=== PATIENT | female | born 1945 | race Caucasian/White ===

== ENCOUNTER 2022-01-10 06:14 | Inpatient (IN) | payer MEDICARE ==
[2022-01-07 10:10] LABS: Basophils # (auto) 0.2 10 ^3/uL (0-0.2); Basophils % (auto) 3.7 % (0.0-2.0); Eosinophils # (auto) 0.2 10 ^3/uL (0-0.8); Eosinophils % (auto) 3.6 % (0.0-7.0); Hematocrit 40.2 % (36.0-46.0); Hemoglobin 13.4 g/dL (12.2-16.2); Lymphocytes # (auto) 1.2 10 ^3/uL (0.4-5.4); Lymphocytes % (auto) 24.2 % (10.0-50.0); Mean Corpuscular Hemoglobin 29.9 pg (28.0-32.0); Mean Corpuscular Hgb Conc. 33.4 g/dL (32.0-36.0); Mean Corpuscular Volume 89.4 fL (80.0-100.0); Monocytes # (auto) 0.4 10 ^3/uL (0-1.3); Monocytes % (auto) 8.4 % (0.0-12.0); Neutrophils # (auto) 2.9 10 ^3/uL (1.6-8.6); Neutrophils % (auto) 60.1 % (37.0-80.0); Red Blood Cells 4.49 10^6/uL (4.0-5.20); Red Cell Distribution Width 15.1 % (11.8-14.3); White Blood Cell 4.8 10^3/uL (4.4-10.8)
[2022-01-07 10:24] LABS: INR 1.01 (0.9-1.15); Partial Thromboplastin Time 26.6 sec (23.6-33.0)
[2022-01-07 10:26] LABS: Albumin 3.7 g/dL (3.4-5.0); Calcium 8.9 mg/dL (8.5-10.1); Potassium 4.1 mmol/L (3.5-5.1)
[2022-01-07 10:31] LABS: BUN/Creatinine Ratio 21.1; Bilirubin, Total 0.9 mg/dL (0.2-1.0)
[~2022-01-10] VITALS: Ht 154.9 cm; Wt 78.3 kg
[~2022-01-10 06:14] MED LIST: ABAT1INJ2 SC; ALBU108A5 IN; ASCOCRY2 OR; ASPI1TAB20 PO; B-CO-15 OR; CHOLTAB12 PO; CYAN50008 PO; FAMO-68 PO; FOLITAB22 OR; LOSA-69 PO; MISCCAP OR; MONT5CHW23 PO; MULT-833 OR; OMEG10003 PO; TRAM50TA2 PO; TRAZ100T3 PO; VITA180C PO; ZINC50TA7 PO
[2022-01-10] MEDS ORDERED: SUCCINYLCHOLINE CHLORIDE 20 MG/ML 10ML VIAL IV ONE (06:35)
[2022-01-10] MEDS ORDERED: TETRACAINE 1% INJ 2 ML VIAL IJ ONE (06:35)
[2022-01-10] MEDS ORDERED: TRANEXAMIC ACID 20 ML ONE (07:02)
[2022-01-10] MEDS ORDERED: ceFAZolin 1GM/50ML 100 ML IV ONE (07:03)
[2022-01-10] MEDS ORDERED: DexAMETHasone SOD PHOS 10MG/1ML VIAL INJ ONE (07:04)
[2022-01-10] MEDS ORDERED: ACETAMINOPHEN IV 100 ML IV ONE (07:04)
[2022-01-10] MEDS ORDERED: MIDAZOLAM HCL 2MG/2ML 2ml VIAL (1mg/ml) ONE (07:04)
[2022-01-10] MEDS ORDERED: fentaNYL CITRATE 100 MCG/2 ML VL ONE (07:04)
[2022-01-10] MEDS ORDERED: MORPHINE SULF PF 5 MG/10 ML VIAL ONE ×2 (07:04→07:56)
[2022-01-10] MEDS ORDERED: SODIUM CHLORIDE LOCK 10 ML ONE (07:04)
[2022-01-10] MEDS ORDERED: ONDANSETRON HCL 4 MG/2 ML VIAL ONE (07:04)
[2022-01-10] MEDS ORDERED: PROPOFOL 10 MG/ML 20 ML IV ONE (07:04)
[2022-01-10] MEDS: PREGABALIN CAPSULE 75 MG CAP ONE ×2 (07:10→10:14)
[2022-01-10] MEDS: CELECOXIB 100 MG CAP ONE ×2 (07:10→10:14)
[2022-01-10] MEDS ORDERED: KETOROLAC TROMETH 30 MG/ML 1ML VIAL ONE (07:14)
[2022-01-10] MEDS ORDERED: ACETAMINOPHEN 325 MG TAB PO PRN (08:00)
[2022-01-10] MEDS ORDERED: HYDROmorphone HCL 2 MG/ML VL/or syr IV PRN ×2 (08:00→08:30)
[2022-01-10] MEDS ORDERED: BISACODYL 5 MG EC TAB PO PRN (08:00)
[2022-01-10] MEDS ORDERED: ONDANSETRON HCL 4 MG/2 ML VIAL IV PRN ×2 (08:00→08:30)
[2022-01-10] MEDS ORDERED: NITROGLYCERIN 0.4 MG SL TAB SL PRN (08:00)
[2022-01-10] MEDS ORDERED: MORPHINE SULFATE INJ 2 MG/ml SYRG IV PRN (08:00)
[2022-01-10 08:11] LABS: Urine Bacteria MOD /hpf (None Seen); Urine Blood Negative /uL (Negative); Urine WBC 27 /hpf (0 - 5)
[2022-01-10] MEDS ORDERED: CELECOXIB 100 MG CAP PO ONE (08:15)
[2022-01-10] MEDS ORDERED: PREGABALIN CAPSULE 75 MG CAP PO ONE (08:15)
[2022-01-10] MEDS ORDERED: ACETAMINOPHEN IV 1000 MG/100ML (10MG/ML) IV ONE (08:15)
[2022-01-10] MEDS ORDERED: MORPHINE SULFATE 4 MG/ML SYR/VIAL IV PRN (08:30)
[2022-01-10] MEDS ORDERED: diphenhdrAMINE HCL 50 MG/1 ML VL IV PRN (08:30)
[2022-01-10] MEDS ORDERED: NALOXONE HCL 0.4 MG/ML VIAL IV PRN (08:30)
[2022-01-10] MEDS: BUPIVACAINE 0.25% INJ 50ML VIAL ONE ×2 (08:40→10:13)
[2022-01-10] MEDS: VANCOMYCIN HCL 1000 MG VL ONE ×2 (08:40→10:15)
[2022-01-10] MEDS: DOCUSATE SOD 100 MG CAP PO SCH ×2 (10:00→21:39)
[2022-01-10] MEDS ORDERED: ALBUTEROL SULF HFA 90MCG INH 200DOSE IN SCH (10:00)
[2022-01-10] MEDS: ENOXAPARIN SOD 40 MG/0.4 ML SYRINGE SC SCH (10:00)
[2022-01-10] MEDS: LACTATED RINGER'S 1,000 ML IV SCH ×2 (10:15→18:26)
[2022-01-10] MEDS: ceFAZolin 1GM/50ML 50 ML IV SCH ×3 (10:16→21:37)
[2022-01-10] MEDS: LOSARTAN POTASSIUM 50 MG TAB PO SCH (11:03)
[2022-01-10] MEDS: FAMOTIDINE 20 MG TAB PO SCH (11:03)
[2022-01-10] MEDS: MONTELUKAST SODIUM 10 MG TAB PO SCH (11:04)
[2022-01-10] MEDS: traMADol HCL 50 MG TAB PO SCH (11:04)
[2022-01-10] MEDS: SODIUM CHLOR 0.9% PF (SALINE LOCK) 10ML VIAL/SYR IV SCH ×2 (14:00→21:38)
[2022-01-10 15:01] VITALS: BP 105/64
[2022-01-10] MEDS: traZODone HCL 50 MG TAB PO SCH (18:33)
[2022-01-10 22:00] VITALS: BP 110/50
[2022-01-11] MEDS: HYDROcodone-ACET 5/325MG TAB PO PRN ×3 (01:29→21:20)
[2022-01-11] MEDS: LACTATED RINGER'S 1,000 ML IV SCH ×3 (03:52→23:59)
[2022-01-11 04:37] LABS: Hematocrit 31.8 % (36.0-46.0); Hemoglobin 10.5 g/dL (12.2-16.2)
[2022-01-11 05:00] VITALS: BP 96/47
[2022-01-11 05:16] LABS: Potassium 4.8 mmol/L (3.5-5.1)
[2022-01-11 05:17] LABS: Albumin 3.2 g/dL (3.4-5.0); Calcium 8.6 mg/dL (8.5-10.1)
[2022-01-11 05:21] LABS: BUN/Creatinine Ratio 25.7; Bilirubin, Total 0.6 mg/dL (0.2-1.0); Total Protein 6.1 g/dL (6.4-8.2)
[2022-01-11] MEDS: SODIUM CHLOR 0.9% PF (SALINE LOCK) 10ML VIAL/SYR IV SCH ×3 (06:36→21:48)
[2022-01-11] MEDS: MONTELUKAST SODIUM 10 MG TAB PO SCH (09:39)
[2022-01-11] MEDS: traMADol HCL 50 MG TAB PO SCH (09:39)
[2022-01-11] MEDS: DOCUSATE SOD 100 MG CAP PO SCH ×2 (09:39→21:48)
[2022-01-11] MEDS: FAMOTIDINE 20 MG TAB PO SCH (09:41)
[2022-01-11] MEDS: ENOXAPARIN SOD 40 MG/0.4 ML SYRINGE SC SCH (09:41)
[2022-01-11 09:51] VITALS: BP 105/56
[2022-01-11] MEDS: LOSARTAN POTASSIUM 50 MG TAB PO SCH (09:51)
[2022-01-11] MEDS ORDERED: HYDROmorphone HCL 2 MG/ML VL/or syr IV PRN (11:15)
[2022-01-11] MEDS ORDERED: cefTRIAXone 1GM/50ML D5W 50 ML IV ONE (11:15)
[2022-01-11] MEDS ORDERED: MONTELUKAST SODIUM 10 MG TAB PO ONE (11:15)
[2022-01-11 13:00] VITALS: BP 105/51
[2022-01-11 17:00] VITALS: BP 128/55
[2022-01-11] MEDS: traZODone HCL 50 MG TAB PO SCH (17:18)
[2022-01-11 22:00] VITALS: BP 150/60
[2022-01-12] MEDS: HYDROcodone-ACET 5/325MG TAB PO PRN ×3 (03:16→13:18)
[2022-01-12 05:00] VITALS: BP 136/70
[2022-01-12 05:39] LABS: Basophils # (auto) 0 10 ^3/uL (0-0.2); Basophils % (auto) 0.3 % (0.0-2.0); Eosinophils # (auto) 0 10 ^3/uL (0-0.8); Eosinophils % (auto) 0.2 % (0.0-7.0); Hematocrit 30.1 % (36.0-46.0); Hemoglobin 10.1 g/dL (12.2-16.2); Lymphocytes # (auto) 0.9 10 ^3/uL (0.4-5.4); Lymphocytes % (auto) 9.5 % (10.0-50.0); Mean Corpuscular Hemoglobin 29.6 pg (28.0-32.0); Mean Corpuscular Hgb Conc. 33.6 g/dL (32.0-36.0); Mean Corpuscular Volume 88.2 fL (80.0-100.0); Monocytes # (auto) 0.7 10 ^3/uL (0-1.3); Monocytes % (auto) 7.1 % (0.0-12.0); Neutrophils # (auto) 8.2 10 ^3/uL (1.6-8.6); Neutrophils % (auto) 82.9 % (37.0-80.0); Red Blood Cells 3.41 10^6/uL (4.0-5.20); Red Cell Distribution Width 15.2 % (11.8-14.3); White Blood Cell 9.8 10^3/uL (4.4-10.8)
[2022-01-12 05:55] LABS: BUN/Creatinine Ratio 24.3; Calcium 8.2 mg/dL (8.5-10.1); Potassium 3.7 mmol/L (3.5-5.1)
[2022-01-12] MEDS: SODIUM CHLOR 0.9% PF (SALINE LOCK) 10ML VIAL/SYR IV SCH ×2 (06:05→14:18)
[2022-01-12] MEDS ORDERED: cefTRIAXone 1GM/50ML D5W 50 ML IV SCH (09:00)
[2022-01-12] MEDS: LACTATED RINGER'S 1,000 ML IV SCH (09:01)
[2022-01-12] MEDS: ENOXAPARIN SOD 40 MG/0.4 ML SYRINGE SC SCH (09:02)
[2022-01-12] MEDS: DOCUSATE SOD 100 MG CAP PO SCH (09:02)
[2022-01-12] MEDS: FAMOTIDINE 20 MG TAB PO SCH (09:02)
[2022-01-12 09:12] VITALS: BP 148/71
[2022-01-12 11:51] VITALS: BP 148/71
[2022-01-12 13:00] VITALS: BP 145/92
[2022-01-12] MEDS ORDERED: MONTELUKAST SODIUM 10 MG TAB PO SCH (22:00)
== END 2022-01-12 15:30 | disposition home health service (06) | DRG 470 ==
LOC: SUR 06:14 → OVERFLOW 08:00 → WEST WING 14:24 → CENTRAL 01-11 08:01 → TELE-CENTR 01-11 08:07 → CENTRAL 01-12 01:55
PROVIDERS: ADMIT Orthopaedic Surgery Adult Reconstructive Orthopaedic Surgery; ATTEND Internal Medicine
PROC: 8E0YXBZ Computer Assisted Procedure of Lower Extremity (ICD-10-PCS; 2022-01-10)
PROC: 0SRC0J9 Replacement of Right Knee Joint with Synthetic Substitute, Cemented, Open Approach (ICD-10-PCS; principal; 2022-01-10 07:25)
DX: M17.11 Unilateral primary osteoarthritis, right knee (principal); N39.0 Urinary tract infection, site not specified; I10 Essential (primary) hypertension; M06.9 Rheumatoid arthritis, unspecified; E66.9 Obesity, unspecified; M21.061 Valgus deformity, not elsewhere classified, right knee; Z68.32 Body mass index [BMI] 32.0-32.9, adult; J44.9 Chronic obstructive pulmonary disease, unspecified
CPT/HCPCS: 36415; 71045; 73562; 80048; 80053; 81001; 85014; 85018; 85025; 85610; 85730; 86850; 86900; 86901; 93971; 97110; 97116; 97530; G0378; J0131; J0330; J0690; J0696; J1100; J1885; J2250; J2405; J2704; J3490